=== PATIENT | female | born 1970 | race Two or more races ===

== ENCOUNTER 2017-05-31 17:40 | Emergency (ER) | payer OTHER ==
[2017-05-31 17:48] VITALS: BP 133/86; PULSE 107; TEMP 98.9; BMI 38.6
--- NOTE | 2017-05-31 18:26 | PDOC ---
History of Present Illness - General Chief Complaint: Cold Symptoms Stated Complaint: PAIN Time Seen by Provider: 05/31/17 18:06 History Source: Patient Exam Limitations: No Limitations - History of Present Illness Initial Comments: 05/31/17 18:27 46-year-old female presents to the emergency room complaints of nasal congestion , sore throat, left ear pain, cough and chills. Patient states symptoms started approximately 3 days ago but denies vomiting, dizziness, neck stiffness, chest pain, shortness of breath, abdominal pain, or nausea. patient denies medical history and smoking hx. Timing/Duration: reports: other Severity: reports: mild Associated Symptoms: reports: cough, earache, fever/chills, sore throat Past History - Past Medical History Allergies/Adverse Reactions: Allergies Allergy/AdvReac Type Severity Reaction Status Date / Time No Known Allergies Allergy Verified 05/31/17 17:48 Home Medications: Ambulatory Orders NK [No Known Home Medication] 05/31/17 COPD: No - Suicide/Smoking/Psychosocial Hx Smoking History: Never smoked Hx Alcohol Use: Yes (SOCIAL) Drug/Substance Use Hx: No Patient Lives Alone: No Lives with/in: spouse/SO Review of Systems - Review of Systems Able to Perform ROS?: Yes Constitutional: Yes: Chills HEENTM: Yes: Ear Pain, Throat Pain Respiratory: Yes: Cough Cardiac (ROS): No: Symptoms Reported ABD/GI: No: Symptoms Reported Musculoskeletal: No: Symptoms Reported Integumentary: No: Symptoms Reported Neurological: No: Symptoms reported *Physical Exam - Vital Signs Last Vital Signs Temp Pulse Resp BP Pulse Ox 98.9 F 107 H 20 133/86 98 05/31/17 17:44 05/31/17 17:44 05/31/17 17:44 05/31/17 17:44 05/31/17 17:44 - Physical Exam General Appearance: Yes: Nourished, Appropriately Dressed. No: Apparent Distress HEENT: positive: EOMI, MYRON, Muffled/Hoarse voice, Pharyngeal Erythema (oft palate). negative: Pale Conjunctivae Neck: positive: Supple, Lymphadenopathy (L) (upper cervical) Respiratory/Chest: positive: Lungs Clear, Normal Breath Sounds. negative: Respiratory Distress, Accessory Muscle Use Cardiovascular: positive: Regular Rhythm, Tachycardia. negative: Murmur Gastrointestinal/Abdominal: positive: Soft, Tenderness Extremity: positive: Normal Capillary Refill. negative: Pedal Edema Integumentary: positive: Normal Color, Warm, Moist Neurologic: positive: Normal Mood/Affect, Motor Strength 5/5 (ambulatory ) Medical Decision Making - Medical Decision Making 05/31/17 18:37 Pt with URI s/s. Pt with erythema to posterior soft palate. Pt ordered for rapid strep, 05/31/17 18:59 Rapid strep negative. Will treat patient with azithromycin based on clinical exam. *DC/Admit/Observation/Transfer Diagnosis at time of Disposition: Laryngitis - Discharge Dispostion Disposition: HOME Condition at time of disposition: Good - Referrals Referrals: Lulú Manzo [Primary Care Provider] - - Patient Instructions Printed Discharge Instructions: DI for Viral Upper Respiratory Infection-Child , DI for Laryngitis Additional Instructions: I recommend gargling with warm salt water, eating soft foods, using throat lozenges, and taking antibiotics until completed. You may also purchase [id number] Chloraseptic spray to help alleviate your throat discomfort. - Post Discharge Activity
== END 2017-05-31 19:05 | disposition home or self-care (01) ==
LOC: JERFT 17:40
DX: J04.0 Acute laryngitis (principal)
CPT/HCPCS: 87070; 87430; 99281-25